=== PATIENT | female | born 1940 | race Caucasian/White ===

== ENCOUNTER 2018-03-02 09:38 | Inpatient (IN) | payer MEDICARE, OTHER ==
[~2018-03-02] VITALS: Ht 160 cm; Wt 58.4 kg
--- NOTE | ~2018-03-02 | EC ---
PATIENT:JAN BONNER DATE OF SERVICE: 03/03/18 SEX: F MEDICAL RECORD: [id number] DATE OF : 36 LOCATION:D.M2 D.213 AGE OF PATIENT: 78 ADMISSION DATE: 03/03/18 REFERRING PHYSICIAN: INTERPRETING PHYSICIAN: SUNITA HUIZAR MD ECHOCARDIOGRAM REPORT ECHO CHARGES 4 ECHO COMPLETE Date: 03/03 CLINICAL DIAGNOSIS: CHF ECHOCARDIOGRAPHIC MEASUREMENTS (adult normal given) AC root (d.<3.7cm) 3.5 cm LV Septum d (<1.2 cm> 1.2 cm Valve Excursion 2.0 cm LV Septum (systole) 1.6 cm Left Atria (s.<4.0cm> 3.1 cm LVPW d(<1.2cm) 1.4 cm RV (d.<2.3cm) 2.3 cm LVPW (sytole) 1.6 cm LV diastole(<5.6CM) 3.7 cm MV E-F(>70mm/sec) cm LV systole 2.5 cm LVOT Diameter 1.5 cm MV exc.(>10mm) 1.4 cm Est.ejection fraction (50-75%) % DOPPLER: LVIT cm/sec A 88.0 cm/sec E 70.0 cm/sec LA cm/sec RVSP 36 mmHg LVOT 101 cm/sec AOP1/2T m/s Asc. Ao 134 cm/sec RVOT 64 cm/sec RA cm/sec PA 92 cm/sec AV Gradient Peak 7.14 mmHg AV Mean 3.90 mmHg AV Area 1.6 cm MV Gradient Peak 2.87 mmHg MV Mean 1.13 mmHg MV Area cm COMMENTS: Anthropological Linguist: 2 STEPHANY ORTA Plugman: 4 Dr. Huizar TAPE# PACS Pericardial Effusion N DATE OF SERVICE: PROCEDURE: Transthoracic echocardiogram. FINDINGS: 1. Left ventricle shows evidence of left ventricular hypertrophy with diastolic dysfunction. Ejection fraction of 60% to 65%. 2. Left atrium is normal overall and grossly, although not well visualized. 3. Mitral valve is not well visualized, but grossly normal. 4. The tricuspid valve has mild tricuspid regurgitation. RVSP of 30-35 mmHg. ECHOCARDIOGRAM REPORT [id number] JAN BONNER 5. The right ventricle is normal size, shape and function. 6. The right atrium is normal. 7. The pulmonic valve has mild pulmonic insufficiency. CONCLUSION: The patient has evidence of mild hypertensive heart disease, but overall normal structure and function for patient's stated age. No evidence of regional wall motion abnormalities. TRANSINT:[id number] Voice Confirmation ID: [id number] DOCUMENT ID: [id number] SUNITA HUIZAR MD at 0927 CC: [id number] DICTATION DATE: 03/04/18 1038 GOLF CLUB MAKER: 03/04/18 1101 ADM IN [place] [id number] [place] [address]
[2018-03-02] MEDS ORDERED: PRAVACHOL20 MG PO (09:59)
[2018-03-02] MEDS ORDERED: ZESTRIL40 MG PO (10:00)
[2018-03-02] MEDS ORDERED: FLUTICASONE PRO16 GM NASAL (10:00)
[2018-03-02] MEDS ORDERED: CALCIUM 500 + D1 TAB PO (10:01)
[2018-03-02] MEDS ORDERED: MAGNESIUM OXID250 MG PO (10:01)
[2018-03-02] MEDS ORDERED: BAYER CHEWABLE81 MG PO (10:01)
[2018-03-02] MEDS ORDERED: NORVASC5 MG PO (10:01)
[2018-03-02 10:26] LABS: BASOPHILS 0.1 % (0-2); EOSINOPHILS 0.3 % (0-7); HEMATOCRIT 35.8 % (36.0-48.0); HEMOGLOBIN 11.6 g/dL (12-16); IMMATURE GRANULOCYTES 0.3 % (0-5); MCH 28.7 pg (26.0-34.0); MCHC 32.4 g/dL (31.0-37.0); MCV 88.6 fL (80.0-100.0); MEAN PLATELET VOLUME 9.8 fL (7.4-10.4); MONOCYTES 11.8 % (2-11); NEUTROPHILS 77.5 % (40-80); PLATELET COUNT 283 10x3/uL (130-400); RBC 4.04 10x6/uL (4.00-5.40); RDW 14.3 % (11.5-14.5); WBC 15.9 10x3/uL (4.8-10.8)
[2018-03-02 10:42] LABS: INR 1.19 (0.85-1.17); PROTIME 14.7 SECONDS (11.6-15.0)
[2018-03-02 10:43] LABS: APTT 32.7 SECONDS (22.8-39.4)
[2018-03-02 10:48] LABS: ALKALINE PHOSPHATASE 145 U/L (46-116); ALT (SGPT) 24 U/L (10-68); CALC OSMOLALITY 278 mosm/kg (275-300); CALCIUM 9.6 mg/dL (8.5-10.1); CHLORIDE - SERUM 100 mmol/L (98-107); GLUCOSE 115 mg/dL (74-106); POTASSIUM - SERUM 4.1 mmol/L (3.5-5.1); PROTEIN - SERUM 8.9 g/dL (6.4-8.2); SODIUM 137 mmol/L (136-145); UREA NITROGEN 23 mg/dL (7-18); eGFR NON AFRICAN AMERICAN 56 mL/min (90-120)
[2018-03-02 10:59] LABS: CKMB 0.2 U/L (0.0-3.6); CREATINE KINASE 98 UL (21-215); PRO BNP 173 pg/mL (0-450); TROPONIN-I < 0.017 ng/mL (0.000-0.060)
[2018-03-02 11:00] VITALS: BP 110/50
[2018-03-02 12:00] VITALS: BP 113/54
[2018-03-02 13:00] VITALS: BP 106/45
[2018-03-02 14:53] VITALS: BP 113/52
[2018-03-02 15:29] LABS: MAGNESIUM - SERUM 2.1 mg/dL (1.8-2.4); T4 THYROXIN - FREE 1.34 ng/dL (0.76-1.46); THYROID STIMULATING HORMONE 2.04 uIU/mL (0.36-3.74)
[2018-03-02] MEDS ORDERED: MULTIPLE VITAMI1 TA1 PO (16:05)
[2018-03-02 16:07] VITALS: BP 113/56; BMI 22.5
[2018-03-02 21:24] VITALS: BP 107/52
[2018-03-03 01:30] VITALS: BP 99/47
[2018-03-03 06:28] VITALS: BP 109/48
[2018-03-03 07:07] LABS: BASOPHILS 0.1 % (0-2); EOSINOPHILS 0.4 % (0-7); HEMATOCRIT 32.4 % (36.0-48.0); HEMOGLOBIN 10.5 g/dL (12-16); IMMATURE GRANULOCYTES 0.2 % (0-5); LYMPHOCYTES 10.8 % (15-50); MCH 28.5 pg (26.0-34.0); MCHC 32.4 g/dL (31.0-37.0); MEAN PLATELET VOLUME 10.3 fL (7.4-10.4); MONOCYTES 12.8 % (2-11); NEUTROPHILS 75.7 % (40-80); PLATELET COUNT 259 10x3/uL (130-400); RBC 3.68 10x6/uL (4.00-5.40); RDW 14.5 % (11.5-14.5); WBC 14.3 10x3/uL (4.8-10.8)
[2018-03-03 07:26] LABS: ANION GAP 14.6 mmol/L (8-16); CALCIUM 9.2 mg/dL (8.5-10.1); CARBON DIOXIDE 24.7 mmol/L (21.0-32.0); CREATININE - SERUM 0.9 mg/dL (0.6-1.3); POTASSIUM - SERUM 4.3 mmol/L (3.5-5.1)
[2018-03-03 08:51] VITALS: BP 109/52
[2018-03-03 09:25] LABS: APPEARANCE CLEAR (CLEAR); BILIRUBIN NEGATIVE (NEGATIVE); COLOR DK YELLOW (YELLOW); GLUCOSE NEGATIVE (NEGATIVE); KETONE NEGATIVE (NEGATIVE); NITRITE NEGATIVE (NEGATIVE); PROTEIN NEGATIVE (NEGATIVE); UROBILINOGEN NORMAL (NORMAL)
[2018-03-03 12:26] VITALS: BP 106/49
[2018-03-03 16:17] VITALS: BP 120/53
[2018-03-03 23:07] VITALS: BP 101/59
[2018-03-04 01:53] VITALS: BP 109/46
[2018-03-04 05:42] LABS: BASOPHILS 0.1 % (0-2); EOSINOPHILS 0.1 % (0-7); HEMOGLOBIN 10.9 g/dL (12-16); IMMATURE GRANULOCYTES 0.3 % (0-5); LYMPHOCYTES 9.4 % (15-50); MCH 28.3 pg (26.0-34.0); MCHC 32.1 g/dL (31.0-37.0); MCV 88.3 fL (80.0-100.0); MEAN PLATELET VOLUME 10.1 fL (7.4-10.4); MONOCYTES 8.4 % (2-11); NEUTROPHILS 81.7 % (40-80); PLATELET COUNT 259 10x3/uL (130-400); RBC 3.85 10x6/uL (4.00-5.40); RDW 14.2 % (11.5-14.5); WBC 13.6 10x3/uL (4.8-10.8)
[2018-03-04 05:54] LABS: ANION GAP 12.2 mmol/L (8-16); CALCIUM 9.6 mg/dL (8.5-10.1); CARBON DIOXIDE 26.1 mmol/L (21.0-32.0); POTASSIUM - SERUM 4.3 mmol/L (3.5-5.1)
[2018-03-04 06:25] VITALS: BP 105/50
[2018-03-04 09:01] VITALS: BP 96/42
[2018-03-04 13:24] LABS: % SATURATION 11 % (15-55); IRON 20 ug/dl (35-150); TOTAL IRON BIND CAPACITY 173 ug/dl (260-445); UNSAT IRON BIND CAPACITY 153 ug/dl (150-375)
[2018-03-04 13:32] VITALS: BP 107/42
[2018-03-04 18:02] LABS: ERYTHROCYTE SEDIMENTATION RATE 70 mm/hr (0-30)
[2018-03-04 20:30] VITALS: BP 102/54
[2018-03-05 04:30] VITALS: BP 112/54
[2018-03-05 05:58] LABS: BASOPHILS 0.2 % (0-2); EOSINOPHILS 1.1 % (0-7); HEMATOCRIT 32.8 % (36.0-48.0); HEMOGLOBIN 10.5 g/dL (12-16); IMMATURE GRANULOCYTES 0.4 % (0-5); LYMPHOCYTES 14.8 % (15-50); MCH 28.2 pg (26.0-34.0); MCV 87.9 fL (80.0-100.0); MEAN PLATELET VOLUME 10.4 fL (7.4-10.4); MONOCYTES 10.6 % (2-11); NEUTROPHILS 72.9 % (40-80); PLATELET COUNT 268 10x3/uL (130-400); RBC 3.73 10x6/uL (4.00-5.40); RDW 14.1 % (11.5-14.5); WBC 12.1 10x3/uL (4.8-10.8)
[2018-03-05 06:11] LABS: ANION GAP 9.1 mmol/L (8-16); CARBON DIOXIDE 27.1 mmol/L (21.0-32.0); POTASSIUM - SERUM 4.2 mmol/L (3.5-5.1)
[2018-03-05 08:40] VITALS: BP 105/45
[2018-03-05 12:28] VITALS: BP 117/50
[2018-03-05 13:41] VITALS: Ht 160 cm; Wt 58.4 kg
[2018-03-05 20:00] VITALS: BP 102/48
[2018-03-05 23:56] VITALS: BP 107/54
[2018-03-06 04:00] VITALS: BP 114/55
[2018-03-06 05:24] LABS: BASOPHILS 0.2 % (0-2); EOSINOPHILS 1.7 % (0-7); HEMATOCRIT 31.3 % (36.0-48.0); IMMATURE GRANULOCYTES 0.6 % (0-5); LYMPHOCYTES 15.4 % (15-50); MCH 27.9 pg (26.0-34.0); MCHC 31.9 g/dL (31.0-37.0); MCV 87.4 fL (80.0-100.0); MEAN PLATELET VOLUME 10.1 fL (7.4-10.4); MONOCYTES 10.6 % (2-11); NEUTROPHILS 71.5 % (40-80); PLATELET COUNT 276 10x3/uL (130-400); RBC 3.58 10x6/uL (4.00-5.40); RDW 14.1 % (11.5-14.5); WBC 10.8 10x3/uL (4.8-10.8)
[2018-03-06 05:35] LABS: ANION GAP 9.9 mmol/L (8-16); CALCIUM 8.9 mg/dL (8.5-10.1); CARBON DIOXIDE 26.4 mmol/L (21.0-32.0); POTASSIUM - SERUM 4.3 mmol/L (3.5-5.1)
[2018-03-06 08:00] VITALS: BP 119/50
[2018-03-06 08:20] LABS: FOLATE (FOLIC ACID) - SERUM >20.0 ng/mL (>3.0)
[2018-03-06 10:47] VITALS: BP 110/47
[2018-03-06 15:23] VITALS: BP 109/48
[2018-03-06 20:00] VITALS: BP 120/54
[2018-03-06 23:55] VITALS: BP 110/56
[2018-03-07 04:00] VITALS: BP 109/64
[2018-03-07 06:31] LABS: BASOPHILS 0.3 % (0-2); EOSINOPHILS 2.2 % (0-7); HEMATOCRIT 32.1 % (36.0-48.0); HEMOGLOBIN 10.3 g/dL (12-16); IMMATURE GRANULOCYTES 0.5 % (0-5); LYMPHOCYTES 11.5 % (15-50); MCH 28.1 pg (26.0-34.0); MCHC 32.1 g/dL (31.0-37.0); MCV 87.7 fL (80.0-100.0); MEAN PLATELET VOLUME 10.4 fL (7.4-10.4); NEUTROPHILS 73.5 % (40-80); PLATELET COUNT 274 10x3/uL (130-400); RBC 3.66 10x6/uL (4.00-5.40); RDW 14.2 % (11.5-14.5); WBC 10.7 10x3/uL (4.8-10.8)
[2018-03-07 06:47] LABS: ANION GAP 12.4 mmol/L (8-16); CALCIUM 9.1 mg/dL (8.5-10.1); CREATININE - SERUM 0.9 mg/dL (0.6-1.3); POTASSIUM - SERUM 4.4 mmol/L (3.5-5.1)
[2018-03-07 08:32] VITALS: BP 114/52
[2018-03-07 12:26] VITALS: BP 115/53
[2018-03-07] MEDS ORDERED: PROTONIX40 MG PO (15:21)
[2018-03-07] MEDS ORDERED: MIRALAX17 GM PO (15:21)
[2018-03-07] MEDS ORDERED: FLORAJEN3 CAPS460 MG PO (15:21)
[2018-03-07] MEDS ORDERED: NORVASC2.5 MG PO (15:24)
[2018-03-07] MEDS ORDERED: COMBIVENT RESPIM4 GM INH (15:24)
[2018-03-07] MEDS ORDERED: KEFLEX500 MG PO (15:24)
[2018-03-07 15:50] VITALS: BP 101/52
== END 2018-03-07 16:56 | disposition home or self-care (01) | DRG 194 ==
LOC: D.ER 09:38 → OBSVTIME 13:00 → D.M2 13:00 → D.EDHOLD 13:00 → D.M2 13:04
PROVIDERS: Emergency Medicine; Internal Medicine Nephrology
DX: J18.9 Pneumonia, unspecified organism (principal); N17.9 Acute kidney failure, unspecified; K75.9 Inflammatory liver disease, unspecified; I10 Essential (primary) hypertension; K21.9 Gastro-esophageal reflux disease without esophagitis; D50.9 Iron deficiency anemia, unspecified; S80.811A Abrasion, right lower leg, initial encounter; X58.XXXA Exposure to other specified factors, initial encounter; R00.0 Tachycardia, unspecified; I07.1 Rheumatic tricuspid insufficiency; Z86.73 Personal history of transient ischemic attack (TIA), and cerebral infarction without residual deficits

== ENCOUNTER 2018-04-20 12:35 | Inpatient (IN) | payer MEDICARE, OTHER ==
[~2018-04-20] VITALS: Ht 160 cm; Wt 56.8 kg
--- NOTE | ~2018-04-20 | PN ---
PATIENT:JAN BONNER MEDICAL RECORD: [id number] LOCATION:D.M2 D.212 ADMISSION DATE: 04/20/18 PROGRESS NOTE DATE OF SERVICE: 04/30/2018 This is an 78-year-old female who was admitted for leukocytosis, possible pneumonia. The patient had been coughing up phlegm, leukocytosis had reached up to 33,000 but has come down, is not going up again. The patient feels very weak. There is no fever or chills. Had been on antibiotics as well as bronchodilators. There is no nausea or vomiting. PHYSICAL EXAMINATION: GENERAL: Physical exam reveals an elderly female patient in no acute distress, appears weak on walking. VITAL SIGNS: Temperature 97.2, heart rate of 84, respiratory rate of 18, blood pressure 111/58. SHEENT: Unremarkable. There is no nasal congestion, no obstruction. NECK: Supple. There is no adenopathy. Trachea is midline. There is no thyromegaly. CHEST: Exam showed mild crackles. Some coughing. There is no chest wall tenderness. HEART: Exam shows no jugular venous distention, no murmur or gallops. ABDOMEN: Benign. There is no tenderness. There is no distention and there are no masses. EXTREMITIES: No clubbing, cyanosis or edema. LABORATORY DATA: Showed white count is 17.9, hemoglobin 8.5, platelet count is 206,000. Chemistry shows creatinine of 0.7, potassium 3.9. IGA is elevated. Serology H. pylori negative, hepatitis B negative, hepatitis B surface antigen is negative. Hepatitis C is elevated. Chest x-ray showed interval progression of her bibasilar atelectasis. ASSESSMENT: 1. Leukocytosis, appears to be improving, but now is still elevated. 2. Bilateral atelectasis, possible pneumonitis. The patient is expected to be seen by an infectious disease surgical product sales consultant. PLAN: 1. Continue antibiotics, bronchodilators as well as chest percussion. 2. Follow CBC for white count levels. 3. Deep venous thrombosis prophylaxis. TRANSINT:[id number] Voice Confirmation ID: [id number] DOCUMENT ID: [id number] PROGRESS NOTE [id number] JAN BONNER TAMIE HARMON at 5544 CC: [id number] DICTATION DATE: 04/30/18 185 INDIAN BLANKET WEAVER: 04/30/18 2330 ADM IN [facility] [address] [facility]
--- NOTE | ~2018-04-20 | PN ---
PATIENT:JAN BONNER MEDICAL RECORD: [id number] LOCATION:[address] ADMISSION DATE: 04/20/18 PROGRESS NOTE DATE OF SERVICE: 05/01/2018 HISTORY OF PRESENT ILLNESS: This is an 78-year-old female who was admitted through the Emergency Room with fever and chills as well as leukocytosis, has had cough nonproductively. She was seen by infectious disease consult today. The patient states that she has lost about 30 pounds recently. She does also travel to [facility] more than 3 times as well as to [place]. The patient denies any fever or chills. PHYSICAL EXAMINATION: GENERAL: Physical exam reveals an elderly female who appears to be weak. VITAL SIGNS: Temperature 98.2, heart rate of 68, respiratory rate of 18, blood pressure 111/55, and saturation 95%. SHEENT: Unremarkable. NECK: Supple. PULMONARY: Clear with occasional crackles at coughing. HEART: Exam shows no jugular venous distention, no murmur or gallops. ABDOMEN: Benign. No tenderness. EXTREMITIES: No clubbing, cyanosis or edema. LABORATORY DATA: Lab exam shows a white count of 19, hemoglobin 8.7, and platelet count is 297. Chemistry is remarkable for sodium 132 and creatinine is 0.7. ASSESSMENT: 1. Leukocytosis, most likely due to atypical infection, possibly to Mycobacterium suggestive of fungal disease. 2. Weight loss secondary to infection. PLAN: 1. Thanks to ID for involvement. Continue antibiotics. 2. Continue bronchodilators. 3. DVT prophylaxis. TRANSINT:[id number] Voice Confirmation ID: [id number] DOCUMENT ID: [id number] TAMIE HARMON at 1350 CC: [id number] DICTATION DATE: 05/01/181816 TEACHER OF THE HEARING IMPAIRED: 05/01/18 6604 ADM IN [facility] [address] [place] [address]
--- NOTE | ~2018-04-20 | PN ---
PATIENT:JAN BONNER MEDICAL RECORD: [id number] LOCATION:D.M2 D.212 ADMISSION DATE: 04/20/18 PROGRESS NOTE DATE OF SERVICE: 05/04/2018 SUBJECTIVE: This is an 78-year-old female, who was admitted with acute bronchitis with cough and sputum production. The patient also was noted to have leukocytosis. She was treated with antibiotics, bronchodilators with significant decrease in leukocytosis. The patient was seen by infectious disease provider contracting consultant and the patient was switched to Levaquin. The patient began to feel better. She was coughing up. Leukocytosis decreased. The patient has been doing well with no fever or chills. PHYSICAL EXAMINATION: GENERAL: Reveals a well-developed, well-nourished female, who is in no acute distress. VITAL SIGNS: Temperature 97.5, heart rate of 105, respiratory rate of 18, blood pressure 95/59. SHEENT: Unremarkable. NECK: Supple. No adenopathy. Trachea is midline. There is no tenderness. CHEST: Clear. Good airflow bilaterally. There are no crackles. There are no wheezes. CARDIAC: Shows no jugular venous distention, murmurs, or gallops. ABDOMEN: Benign. EXTREMITIES: Shows no clubbing, cyanosis, or edema. LABORATORY DATA: Lab exam showed white count of 18.3, hemoglobin of 7.9. Her chemistry is remarkable for potassium of 3.3, sodium 137, creatinine is 0.6. Abdomen and pelvic CT: Heterogeneous mass in the right lobe of liver is suspicious for hepatic malignancy. A mass that is arising from willian hepatis or the pancreas is also suspicious for malignancy. Enlarged lymph nodes within the inferior vena cava and duodenum suspicious for metastatic disease. Large amount of fecal material in the colon. Sigmoid diverticulosis. Bibasilar atelectasis is noted. ASSESSMENT: 1. 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 Has bibasilar atelectasis. Plan to continue antibiotic and bronchodilator therapy. 2. Leukocytosis secondary to malignancy. 3. Bibasilar atelectasis with pneumonia. PLAN: We will sign off the patient now. Further evaluation and treatment per PCP. If pulmonary is needed, please call the pulmonary team. TRANSINT:[id number] Voice Confirmation ID: [id number] DOCUMENT ID: [id number] PROGRESS NOTE [id number] PRESLAR,TAMIE CASH at 1648 CC: [id number] DICTATION DATE: 05/04/18 1509 LEVEL VIAL GRINDER: 05/04/18 1555 ADM IN [facility] [address] [place] [id number]
--- NOTE | ~2018-04-20 | PN ---
PATIENT:JAN BONNER MEDICAL RECORD: [id number] LOCATION:D. D.212 ADMISSION DATE: 04/20/18 PROGRESS NOTE DATE OF SERVICE: 05/02/2018 SUBJECTIVE: This is an 78-year-old female, who has had recent travels to [facility]. She has noted increasing shortness of breath and sputum production initially was yellowish-green and now is clearing to almost white. The patient has had severe leukocytosis. She has been waxing and waning. The patient was seen by infectious disease and was changed to Levaquin. Her white count decreased overnight. The patient has decreased coughing. There is no fever or chills. PHYSICAL EXAMINATION: GENERAL: Reveals an elderly female who is in no acute distress. VITAL SIGNS: Temperature 97.5, heart rate 101, respiratory rate 16, blood pressure 132/59, saturation 96%. SHEENT: Unremarkable. Normal nares. Oral cavity is normal, moistened. NECK: Supple. There is no adenopathy. Trachea is midline. There is no thyromegaly. CHEST: Showed good flow. There are mild bilateral crackles on coughing. No chest wall tenderness. HEART: Shows no jugular venous distention. No murmur or gallops. ABDOMEN: Shows no tenderness. No distention. No masses. EXTREMITIES: There is no clubbing, cyanosis or edema. LABORATORY DATA: White count of 17.5, hemoglobin 8.7 and platelet count is 290. Chemistry is remarkable for creatinine of 0.7. Sodium is 134, potassium 3.6. Immunology showed elevated IgE. Serology showed hepatitis C antibody. ASSESSMENT: 1. Severe leukocytosis improved on Levaquin. We will check it again, last test has been going up and down each day. 2. Acute bronchitis, opacity improving. 3. Positive hepatitis C antibody. 4. Possible aspiration. PLAN: 1. Continue bronchodilators. 2. Continue antibiotics. 3. Deep venous thrombosis prophylaxis. TRANSINT:[id number] Voice Confirmation ID: [id number] DOCUMENT ID: [id number] PROGRESS NOTE [id number] JAN BONNER TAMIE HARMON at 1241 CC: [id number] DICTATION DATE: 05/02/181732 MATHEMATICAL STATISTICIAN: 05/02/182037 ADM IN [address] [place] [address]
--- NOTE | ~2018-04-20 | CN ---
PATIENT NAME:JAN BONNER MEDICAL RECORD: [id number] : 36 LOCATION:D. D.2125 ADMIT DATE: 04/20/18 ACCOUNT: [id number] CONSULTING PHYSICIAN: TAMIE HARMON REFERRING PHYSICIAN: MARLIN HICKS MD DATE OF CONSULTATION: 04/20/2018 Pulmonary Consultation HISTORY OF PRESENT ILLNESS: This is an 78-year-old female who apparently has had postnasal drainage problem since July of last year. The patient has had recurrent episodes with coughing and shortness of breath. The patient presented to urgent care center and was noted to have leukocytosis and direct admission was placed. The patient denies fever, chills. The patient does not smoke, "has second-hand smoking from my first ." The patient denies any frequency or dysuria. PAST MEDICAL HISTORY: Remarkable for stroke, weakness, hepatitis, and hypertension. PAST SURGICAL HISTORY: Ovarian cyst removal. ALLERGIES: No known allergies. MEDICATIONS: Include Acidophilus Lactis 100 mg daily, polyethylene glycol 17 grams b.i.d., amlodipine 2.5 mg daily, Combivent 1 puff q.i.d. FAMILY HISTORY: Remarkable for cardiovascular disease, cancer, and hypertension. REVIEW OF SYSTEMS: CONSTITUTIONAL: The patient denies any fever or chills. SHEENT: There is no headache. She has had profuse nasal drainage, postnasal drainage. There is no pain in the cheeks. CARDIOPULMONARY. The patient denies any orthopnea or PND. GASTROINTESTINAL: There is no nausea or vomiting, abdominal pain. GENITOURINARY: There is no frequency, dysuria. PHYSICAL EXAMINATION: GENERAL: My review showed an elderly female who is in no acute distress. VITAL SIGNS: Temperature 97.1, heart rate 102, respiratory rate of 18, blood pressure 126/61. SHEENT: Unremarkable for nasal redness and no obstruction. NECK: Supple. There is no adenopathy. There is no stridor. CHEST: Shows mild crackles on coughing bilaterally. HEART: Shows no jugular venous distention. No murmur or gallops. ABDOMEN: Benign, without any tenderness. EXTREMITIES: No clubbing, cyanosis, or edema. LABORATORY DATA: Shows white count of 19.9, hemoglobin 10.1, platelet count is 266. Chemistries remarkable for potassium 3.7, creatinine is 1. Chest x-ray shows no acute cardiopulmonary disease. IMPRESSION: 1. Acute asthmatic bronchitis, probably exacerbated by postnasal drip. CONSULT REPORT [id number] JAN BONNER 2. Chronic obstructive pulmonary disease from secondhand smoking. 3. Leukocytosis, probably secondary to a severe bronchitis or rhinitis. 4. Rhinitis rule out sinusitis. PLAN: 1. Saline nasal spray. 2. Flonase. 3. DuoNeb bronchodilators. 4. Empiric antibiotics, pending cultures. 5. Continue Rocephin. 6. DVT prophylaxis with Lovenox. 7. If the patient does not improve, the patient may need systemic steroid therapy. 8. Control hypertension. PLAN: 1. Rocephin 1 gram daily. 2. Nasal spray with Flonase as well as saline. 3. DuoNeb q.i.d. 4. Lovenox subQ daily. Thank you Dr. Hicks for this consultation. TRANSINT:[id number] Voice Confirmation ID: [id number] DOCUMENT ID: [id number] TAMIE HARMON at 1716 CC: [id number] DICTATION DATE: 04/20/18 1830 ADVERTISING ASSISTANT: 04/20/18 2241 ADM IN [place] [address] [place] [address]
--- NOTE | ~2018-04-20 | PN ---
PATIENT:JAN BONNER MEDICAL RECORD: [id number] LOCATION:D.[facility].212 ADMISSION DATE: 04/20/18 PROGRESS NOTE DATE OF SERVICE: 05/03/2018 SUBJECTIVE: This is an 78-year-old female who was admitted to the Emergency Room for cough and shortness of breath, possible pneumonia with leukocytosis. The patient had enterococcus in the urine, treated for urinary tract infection, but continued to have leukocytosis. Infectious disease was consulted and felt that the patient had other infection other than the urinary tract infection. The patient was switched to Levaquin. The patient has been feeling better overnight. She has been coughing up sputum. There is no fever or chills. PHYSICAL EXAMINATION: GENERAL: Reveals an elderly female who is in no acute distress. VITAL SIGNS: Temperature 97.5, heart rate of 90, respiratory rate of 16, blood pressure 116/56, saturation 96%. SHEENT: Unremarkable. NECK: Supple. There is no adenopathy. LUNGS: Clear with occasional crackles on coughing. No chest wall tenderness. CARDIAC: Shows no jugular venous distention. There is no murmur or gallops. ABDOMEN: Benign. There is no tenderness. There is no distention. There is no mass. EXTREMITIES: Shows no clubbing, cyanosis or edema. LABORATORY DATA: White count 17.4, hemoglobin 8.2 with a platelet count of 243,000. Chemistry is unremarkable except for sodium 134, creatinine is 0.6. ASSESSMENT: 1. Acute asthmatic bronchitis with retained mucus. 2. Hypoalbuminemia. 3. Urinary tract infection. Improving on Levaquin. PLAN: 1. Continue antibiotics. 2. Continue bronchodilators and mucolytic 3. Continue flutter valve. TRANSINT:[id number] Voice Confirmation ID: [id number] DOCUMENT ID: [id number] TAMIE HARMON at 0802 CC: [id number] DICTATION DATE: 05/03/181712 UPKEEP WORKER: 05/04/18 0212 ADM IN [place] [id number] [place] [address]
--- NOTE | ~2018-04-20 | PN ---
PATIENT:JAN BONNER MEDICAL RECORD: [id number] [facility] AD[facility] DATE: 04/20/18 PROGRESS NOTE DATE OF SERVICE: 04/22/2018 HISTORY: An 78-year-old female who was admitted for shortness of breath, urinary tract infection with leukocytosis. The patient also had postnasal drainage. She was treated with antibiotics as well as bronchodilators. The patient's white count was 19,000 and the following day went to 33,000. The patient is breathing better today. White count is down to 18,000. She denies any shortness of breath. There is no fever or chills. PHYSICAL EXAMINATION: GENERAL: Reveals an elderly female who is in no acute distress. VITAL SIGNS: Temperature afebrile, heart rate of 110, respiratory rate of 20, blood pressure 125/55. SHEENT: Unremarkable. Mild redness in the nares. No obstruction. NECK: Supple. Trachea is midline. There is no stridor. LUNGS: Shows mild crackles on coughing. No wheezes. HEART: Shows no jugular venous distention. No murmur or gallops. ABDOMEN: Benign, without any tenderness or masses. EXTREMITIES: Shows no clubbing, cyanosis, or edema. LABORATORY AND DIAGNOSTIC DATA: Show white count of 18.6, hemoglobin 10, platelet count is 282,000. Chemistry is unremarkable. Creatinine is 0.7, potassium 3.8. Chest x-ray shows no acute pulmonary disease. Sinuses showed mild opacification of bilateral mastoid air cells. ASSESSMENT: 1. No signs of bronchitis. 2. Bilateral mastoiditis. 3. Rhinitis. 4. Leukocytosis, improving. PLAN: 1. Continue antibiotics. 2. Bronchodilators. TRANSINT:[id number] Voice Confirmation ID: [id number] DOCUMENT ID: [id number] TAMIE HARMON at 1553 CC: [id number] DICTATION DATE: 04/22/181815 CLIENT CARE MANAGER: 04/23/18 0627 ADM IN [place] [id number] [place] [id number]
[~2018-04-20 12:35] MED LIST: BAYER CHEWABLE81 MG PO; CALCIUM 500 + D1 TAB PO; COMBIVENT RESPIM4 GM INH; FLORAJEN3 CAPS460 MG PO; FLUTICASONE PRO16 GM NASAL; KEFLEX500 MG PO; MAGNESIUM OXID250 MG PO; MIRALAX17 GM PO; MULTIPLE VITAMI1 TA1 PO; NORVASC2.5 MG PO; NORVASC5 MG PO; PRAVACHOL20 MG PO; PROTONIX40 MG PO; ZESTRIL40 MG PO
[2018-04-20 13:50] VITALS: BP 126/61; BMI 21.4
[2018-04-20 14:45] LABS: BASOPHILS 0.1 % (0-2); EOSINOPHILS 0 % (0-7); HEMATOCRIT 31.9 % (36.0-48.0); HEMOGLOBIN 10.1 g/dL (12-16); IMMATURE GRANULOCYTES 0.5 % (0-5); LYMPHOCYTES 5.5 % (15-50); MCH 26.9 pg (26.0-34.0); MCHC 31.7 g/dL (31.0-37.0); MCV 84.8 fL (80.0-100.0); MEAN PLATELET VOLUME 9.3 fL (7.4-10.4); MONOCYTES 6.7 % (2-11); NEUTROPHILS 87.2 % (40-80); PLATELET COUNT 266 10x3/uL (130-400); RBC 3.76 10x6/uL (4.00-5.40); RDW 15.9 % (11.5-14.5); WBC 19.9 10x3/uL (4.8-10.8)
[2018-04-20 15:03] LABS: ANION GAP 13.2 mmol/L (8-16); CARBON DIOXIDE 26.5 mmol/L (21.0-32.0); POTASSIUM - SERUM 3.7 mmol/L (3.5-5.1)
[2018-04-20 21:20] VITALS: BP 125/56
[2018-04-21 02:35] VITALS: BP 124/64
[2018-04-21 06:16] LABS: HEMATOCRIT 33.7 % (36.0-48.0); HEMOGLOBIN 10.9 g/dL (12-16); MCH 27.5 pg (26.0-34.0); MCHC 32.3 g/dL (31.0-37.0); MCV 85.1 fL (80.0-100.0); PLATELET COUNT 429 10x3/uL (130-400); RBC 3.96 10x6/uL (4.00-5.40); RDW 16.2 % (11.5-14.5)
[2018-04-21 06:37] VITALS: BP 123/61
[2018-04-21 06:48] LABS: CALCIUM 9.2 mg/dL (8.5-10.1); CARBON DIOXIDE 23.6 mmol/L (21.0-32.0); POTASSIUM - SERUM 3.6 mmol/L (3.5-5.1)
[2018-04-21 07:33] LABS: LYMPHOCYTES 10 % (15-50); MONOCYTES 6 % (2-11); NEUTROPHILS 80 % (40-80); PLATELET ESTIMATE NORMAL
[2018-04-21 08:00] VITALS: BP 108/52
[2018-04-21 10:51] VITALS: BP 112/55
[2018-04-21 16:11] VITALS: BP 112/58
[2018-04-21 22:32] VITALS: BP 125/55
[2018-04-22 05:41] LABS: BASOPHILS 0.1 % (0-2); EOSINOPHILS 0.4 % (0-7); HEMATOCRIT 31.9 % (36.0-48.0); IMMATURE GRANULOCYTES 0.4 % (0-5); LYMPHOCYTES 5.7 % (15-50); MCH 26.9 pg (26.0-34.0); MCHC 31.3 g/dL (31.0-37.0); MCV 85.8 fL (80.0-100.0); MONOCYTES 6.4 % (2-11); RBC 3.72 10x6/uL (4.00-5.40); RDW 16.1 % (11.5-14.5)
[2018-04-22 05:48] LABS: PLATELET COUNT 282 10x3/uL (130-400); WBC 18.6 10x3/uL (4.8-10.8)
[2018-04-22 06:27] LABS: ALBUMIN 1.9 g/dL (3.4-5.0); ALKALINE PHOSPHATASE 158 U/L (46-116); ALT (SGPT) 41 U/L (10-68); BILIRUBIN - TOTAL 0.42 mg/dL (0.2-1.3); CALC OSMOLALITY 282 mosm/kg (275-300); CALCIUM 8.7 mg/dL (8.5-10.1); CHLORIDE - SERUM 104 mmol/L (98-107); GLUCOSE 117 mg/dL (74-106); POTASSIUM - SERUM 3.8 mmol/L (3.5-5.1); PROTEIN - SERUM 7.1 g/dL (6.4-8.2); SODIUM 139 mmol/L (136-145); UREA NITROGEN 23 mg/dL (7-18); eGFR NON AFRICAN AMERICAN 85 mL/min (90-120)
[2018-04-22 06:28] LABS: CREATININE - SERUM 0.7 mg/dL (0.6-1.3)
[2018-04-22 08:00] VITALS: BP 135/68
[2018-04-23 00:11] VITALS: BP 117/54
[2018-04-23 04:00] VITALS: BP 115/59
[2018-04-23 05:43] LABS: BASOPHILS 0.1 % (0-2); EOSINOPHILS 0.4 % (0-7); HEMATOCRIT 28.7 % (36.0-48.0); IMMATURE GRANULOCYTES 0.4 % (0-5); LYMPHOCYTES 8.4 % (15-50); MCH 26.6 pg (26.0-34.0); MCHC 31.4 g/dL (31.0-37.0); MCV 84.9 fL (80.0-100.0); MONOCYTES 7.3 % (2-11); NEUTROPHILS 83.4 % (40-80); PLATELET COUNT 287 10x3/uL (130-400); RBC 3.38 10x6/uL (4.00-5.40); RDW 16.4 % (11.5-14.5); WBC 20.3 10x3/uL (4.8-10.8)
[2018-04-23 06:09] LABS: ALBUMIN 1.8 g/dL (3.4-5.0); ANION GAP 11.1 mmol/L (8-16); BILIRUBIN - TOTAL 0.42 mg/dL (0.2-1.3); CALCIUM 8.3 mg/dL (8.5-10.1); CREATININE - SERUM 0.8 mg/dL (0.6-1.3); POTASSIUM - SERUM 4.1 mmol/L (3.5-5.1); PROTEIN - SERUM 6.5 g/dL (6.4-8.2)
[2018-04-23 23:37] VITALS: BP 120/59
[2018-04-24 05:00] VITALS: BP 126/60
[2018-04-24 06:20] LABS: BASOPHILS 0.1 % (0-2); EOSINOPHILS 0.3 % (0-7); HEMATOCRIT 29.6 % (36.0-48.0); HEMOGLOBIN 9.4 g/dL (12-16); IMMATURE GRANULOCYTES 0.6 % (0-5); LYMPHOCYTES 7.3 % (15-50); MCH 26.8 pg (26.0-34.0); MCHC 31.8 g/dL (31.0-37.0); MCV 84.3 fL (80.0-100.0); MONOCYTES 7.5 % (2-11); NEUTROPHILS 84.2 % (40-80); PLATELET COUNT 328 10x3/uL (130-400); RBC 3.51 10x6/uL (4.00-5.40); RDW 16.2 % (11.5-14.5); WBC 23.4 10x3/uL (4.8-10.8)
[2018-04-24 06:37] LABS: CALC OSMOLALITY 271 mosm/kg (275-300); CALCIUM 8.7 mg/dL (8.5-10.1); CARBON DIOXIDE 21.6 mmol/L (21.0-32.0); CHLORIDE - SERUM 103 mmol/L (98-107); CREATININE - SERUM 0.7 mg/dL (0.6-1.3); GLUCOSE 103 mg/dL (74-106); POTASSIUM - SERUM 3.9 mmol/L (3.5-5.1); SODIUM 136 mmol/L (136-145); eGFR NON AFRICAN AMERICAN 85 mL/min (90-120)
[2018-04-24 06:39] LABS: UREA NITROGEN 13 mg/dL (7-18)
[2018-04-24 07:39] VITALS: BP 105/52
[2018-04-24 11:51] VITALS: BP 108/55
[2018-04-24 15:15] VITALS: BP 114/60
[2018-04-24 15:30] LABS: APPEARANCE CLEAR (CLEAR); BILIRUBIN NEGATIVE (NEGATIVE); COLOR YELLOW (YELLOW); GLUCOSE NEGATIVE (NEGATIVE); KETONE NEGATIVE (NEGATIVE); NITRITE NEGATIVE (NEGATIVE); PROTEIN NEGATIVE (NEGATIVE); SPECIFIC GRAVITY 1.015 (1.005-1.020); UROBILINOGEN NORMAL (NORMAL)
[2018-04-24 15:32] VITALS: Ht 160 cm; Wt 56.8 kg
[2018-04-24 22:16] VITALS: BP 120/47
[2018-04-25 05:19] LABS: BASOPHILS 0.1 % (0-2); HEMATOCRIT 30.6 % (36.0-48.0); HEMOGLOBIN 9.7 g/dL (12-16); IMMATURE GRANULOCYTES 0.6 % (0-5); LYMPHOCYTES 7.3 % (15-50); MCH 27.2 pg (26.0-34.0); MCHC 31.7 g/dL (31.0-37.0); MCV 85.7 fL (80.0-100.0); MEAN PLATELET VOLUME 9.8 fL (7.4-10.4); MONOCYTES 8.1 % (2-11); NEUTROPHILS 82.9 % (40-80); PLATELET COUNT 295 10x3/uL (130-400); RBC 3.57 10x6/uL (4.00-5.40); RDW 16.5 % (11.5-14.5); WBC 17.6 10x3/uL (4.8-10.8)
[2018-04-25 05:31] LABS: CALC OSMOLALITY 276 mosm/kg (275-300); CALCIUM 8.6 mg/dL (8.5-10.1); CHLORIDE - SERUM 104 mmol/L (98-107); CREATININE - SERUM 0.7 mg/dL (0.6-1.3); GLUCOSE 102 mg/dL (74-106); INR 1.24 (0.85-1.17); POTASSIUM - SERUM 3.7 mmol/L (3.5-5.1); PROTIME 15.2 SECONDS (11.6-15.0); SODIUM 138 mmol/L (136-145); UREA NITROGEN 15 mg/dL (7-18); eGFR NON AFRICAN AMERICAN 85 mL/min (90-120)
[2018-04-25 05:32] LABS: CARBON DIOXIDE 27.7 mmol/L (21.0-32.0)
[2018-04-25 06:19] LABS: HELICOBACTER PYLORI IGG NEGATIVE (NEGATIVE)
[2018-04-25 06:42] VITALS: BP 129/57
[2018-04-25 08:24] LABS: HEPATITIS C ANTIBODY 7.8 (0.0-0.9)
[2018-04-25 10:20] LABS: IMMUNOGLOBULIN A 557 mg/dL (64-422); IMMUNOGLOBULIN G 1391 mg/dL (700-1600)
[2018-04-25 13:57] VITALS: BP 101/51
[2018-04-25 20:42] VITALS: BP 103/61
[2018-04-26 00:59] VITALS: BP 116/56
[2018-04-26 05:14] VITALS: BP 119/59
[2018-04-26 05:16] LABS: BASOPHILS 0.1 % (0-2); EOSINOPHILS 0.9 % (0-7); HEMATOCRIT 26.6 % (36.0-48.0); HEMOGLOBIN 8.4 g/dL (12-16); IMMATURE GRANULOCYTES 0.6 % (0-5); MCH 26.6 pg (26.0-34.0); MCHC 31.6 g/dL (31.0-37.0); MCV 84.2 fL (80.0-100.0); MONOCYTES 9.9 % (2-11); NEUTROPHILS 81.5 % (40-80); PLATELET COUNT 302 10x3/uL (130-400); RBC 3.16 10x6/uL (4.00-5.40); RDW 16.6 % (11.5-14.5); WBC 17.2 10x3/uL (4.8-10.8)
[2018-04-26 05:43] LABS: CALC OSMOLALITY 271 mosm/kg (275-300); CHLORIDE - SERUM 104 mmol/L (98-107); CREATININE - SERUM 0.7 mg/dL (0.6-1.3); GLUCOSE 114 mg/dL (74-106); POTASSIUM - SERUM 3.7 mmol/L (3.5-5.1); SODIUM 135 mmol/L (136-145); UREA NITROGEN 16 mg/dL (7-18); VANCOMYCIN - TROUGH 4.9 ug/mL (10.0-20.0); eGFR NON AFRICAN AMERICAN 85 mL/min (90-120)
[2018-04-26 07:30] VITALS: BP 118/59
[2018-04-26 11:40] VITALS: BP 125/61
[2018-04-26 16:21] VITALS: BP 116/55
[2018-04-27 05:34] VITALS: BP 129/63
[2018-04-27 06:07] LABS: BASOPHILS 0.1 % (0-2); EOSINOPHILS 0.9 % (0-7); HEMATOCRIT 26.7 % (36.0-48.0); HEMOGLOBIN 8.4 g/dL (12-16); IMMATURE GRANULOCYTES 0.7 % (0-5); LYMPHOCYTES 7.7 % (15-50); MCH 26.6 pg (26.0-34.0); MCHC 31.5 g/dL (31.0-37.0); MCV 84.5 fL (80.0-100.0); MEAN PLATELET VOLUME 9.8 fL (7.4-10.4); MONOCYTES 8.2 % (2-11); NEUTROPHILS 82.4 % (40-80); PLATELET COUNT 281 10x3/uL (130-400); RBC 3.16 10x6/uL (4.00-5.40); RDW 16.6 % (11.5-14.5)
[2018-04-27 06:31] LABS: CALC OSMOLALITY 264 mosm/kg (275-300); CALCIUM 8.4 mg/dL (8.5-10.1); CARBON DIOXIDE 24.1 mmol/L (21.0-32.0); CHLORIDE - SERUM 101 mmol/L (98-107); CREATININE - SERUM 0.7 mg/dL (0.6-1.3); GLUCOSE 124 mg/dL (74-106); POTASSIUM - SERUM 3.6 mmol/L (3.5-5.1); SODIUM 132 mmol/L (136-145); UREA NITROGEN 9 mg/dL (7-18); eGFR NON AFRICAN AMERICAN 85 mL/min (90-120)
[2018-04-27 08:26] VITALS: BP 120/90
[2018-04-27 11:43] VITALS: BP 123/84
[2018-04-27 12:19] LABS: IMMUNOGLOBULIN E 38 IU/mL (0-100)
[2018-04-27 15:10] VITALS: BP 125/74
[2018-04-27 20:00] VITALS: BP 111/58
[2018-04-28] VITALS: BP 104/55
[2018-04-28 04:00] VITALS: BP 143/65
[2018-04-28 07:04] LABS: BASOPHILS 0.1 % (0-2); EOSINOPHILS 0.6 % (0-7); HEMATOCRIT 26.8 % (36.0-48.0); HEMOGLOBIN 8.6 g/dL (12-16); IMMATURE GRANULOCYTES 0.7 % (0-5); LYMPHOCYTES 4.1 % (15-50); MCH 26.9 pg (26.0-34.0); MCHC 32.1 g/dL (31.0-37.0); MCV 83.8 fL (80.0-100.0); MEAN PLATELET VOLUME 9.1 fL (7.4-10.4); MONOCYTES 8.1 % (2-11); NEUTROPHILS 86.4 % (40-80); PLATELET COUNT 293 10x3/uL (130-400); RDW 16.5 % (11.5-14.5); WBC 19.8 10x3/uL (4.8-10.8)
[2018-04-28 07:10] LABS: ANION GAP 10.2 mmol/L (8-16); CALCIUM 8.2 mg/dL (8.5-10.1); CARBON DIOXIDE 25.8 mmol/L (21.0-32.0)
[2018-04-28 07:16] LABS: CREATININE - SERUM 0.9 mg/dL (0.6-1.3)
[2018-04-28 08:09] VITALS: BP 105/53
[2018-04-28 11:46] VITALS: BP 107/63
[2018-04-28 15:14] VITALS: BP 108/55
[2018-04-28 20:01] VITALS: BP 130/62
[2018-04-29] VITALS (7 sets, daily range): BP systolic 111–127; BP diastolic 51–67
[2018-04-29 05:18] LABS: BASOPHILS 0.1 % (0-2); HEMATOCRIT 26.3 % (36.0-48.0); HEMOGLOBIN 8.3 g/dL (12-16); IMMATURE GRANULOCYTES 0.8 % (0-5); LYMPHOCYTES 7.4 % (15-50); MCH 26.5 pg (26.0-34.0); MCHC 31.6 g/dL (31.0-37.0); MEAN PLATELET VOLUME 9.4 fL (7.4-10.4); MONOCYTES 8.2 % (2-11); NEUTROPHILS 82.5 % (40-80); PLATELET COUNT 290 10x3/uL (130-400); RBC 3.13 10x6/uL (4.00-5.40); RDW 16.7 % (11.5-14.5)
[2018-04-29 05:22] LABS: WBC 14.3 10x3/uL (4.8-10.8)
[2018-04-29 05:30] LABS: CALC OSMOLALITY 271 mosm/kg (275-300); CARBON DIOXIDE 23.7 mmol/L (21.0-32.0); CHLORIDE - SERUM 104 mmol/L (98-107); CREATININE - SERUM 0.7 mg/dL (0.6-1.3); GLUCOSE 116 mg/dL (74-106); POTASSIUM - SERUM 3.7 mmol/L (3.5-5.1); SODIUM 136 mmol/L (136-145); UREA NITROGEN 11 mg/dL (7-18); eGFR NON AFRICAN AMERICAN 85 mL/min (90-120)
[2018-04-30 04:16] VITALS: BP 115/49
[2018-04-30 05:16] LABS: BASOPHILS 0.1 % (0-2); EOSINOPHILS 0.8 % (0-7); HEMATOCRIT 27.1 % (36.0-48.0); HEMOGLOBIN 8.5 g/dL (12-16); IMMATURE GRANULOCYTES 1.1 % (0-5); LYMPHOCYTES 6.4 % (15-50); MCH 26.6 pg (26.0-34.0); MCHC 31.4 g/dL (31.0-37.0); MEAN PLATELET VOLUME 9.4 fL (7.4-10.4); MONOCYTES 6.8 % (2-11); NEUTROPHILS 84.8 % (40-80); PLATELET COUNT 306 10x3/uL (130-400); RBC 3.19 10x6/uL (4.00-5.40); RDW 16.8 % (11.5-14.5)
[2018-04-30 05:18] LABS: WBC 17.9 10x3/uL (4.8-10.8)
[2018-04-30 05:35] LABS: CALC OSMOLALITY 271 mosm/kg (275-300); CALCIUM 8.3 mg/dL (8.5-10.1); CARBON DIOXIDE 25.2 mmol/L (21.0-32.0); CHLORIDE - SERUM 103 mmol/L (98-107); CREATININE - SERUM 0.7 mg/dL (0.6-1.3); GLUCOSE 116 mg/dL (74-106); POTASSIUM - SERUM 3.9 mmol/L (3.5-5.1); SODIUM 136 mmol/L (136-145); UREA NITROGEN 9 mg/dL (7-18); eGFR NON AFRICAN AMERICAN 85 mL/min (90-120)
[2018-04-30 07:49] VITALS: BP 116/46
[2018-04-30 11:03] VITALS: BP 111/58
[2018-04-30 15:46] LABS: % SATURATION 29 % (15-55); IRON 36 ug/dl (35-150); TOTAL IRON BIND CAPACITY 123 ug/dl (260-445); UNSAT IRON BIND CAPACITY 87 ug/dl (150-375)
[2018-04-30 21:56] VITALS: BP 124/54
[2018-05-01 05:42] VITALS: BP 130/64
[2018-05-01 05:49] LABS: BASOPHILS 0.1 % (0-2); EOSINOPHILS 0.5 % (0-7); HEMATOCRIT 27.4 % (36.0-48.0); HEMOGLOBIN 8.7 g/dL (12-16); IMMATURE GRANULOCYTES 0.9 % (0-5); LYMPHOCYTES 4.9 % (15-50); MCH 26.9 pg (26.0-34.0); MCHC 31.8 g/dL (31.0-37.0); MCV 84.8 fL (80.0-100.0); MEAN PLATELET VOLUME 9.4 fL (7.4-10.4); MONOCYTES 5.5 % (2-11); NEUTROPHILS 88.1 % (40-80); PLATELET COUNT 297 10x3/uL (130-400); RBC 3.23 10x6/uL (4.00-5.40); RDW 16.9 % (11.5-14.5)
[2018-05-01 06:00] LABS: CALC OSMOLALITY 264 mosm/kg (275-300); CALCIUM 8.1 mg/dL (8.5-10.1); CARBON DIOXIDE 24.7 mmol/L (21.0-32.0); CHLORIDE - SERUM 101 mmol/L (98-107); CREATININE - SERUM 0.7 mg/dL (0.6-1.3); GLUCOSE 112 mg/dL (74-106); POTASSIUM - SERUM 3.6 mmol/L (3.5-5.1); SODIUM 132 mmol/L (136-145); UREA NITROGEN 10 mg/dL (7-18); eGFR NON AFRICAN AMERICAN 85 mL/min (90-120)
[2018-05-01 07:47] VITALS: BP 125/58
[2018-05-01 09:18] LABS: FOLATE (FOLIC ACID) - SERUM 15.7 ng/mL (>3.0)
[2018-05-01 11:00] VITALS: BP 111/55
[2018-05-01 20:00] VITALS: BP 122/65
[2018-05-02 00:20] VITALS: BP 121/62
[2018-05-02 04:00] VITALS: BP 122/66
[2018-05-02 06:36] LABS: BASOPHILS 0.1 % (0-2); EOSINOPHILS 0.3 % (0-7); HEMOGLOBIN 8.7 g/dL (12-16); IMMATURE GRANULOCYTES 0.9 % (0-5); LYMPHOCYTES 5.5 % (15-50); MCH 26.6 pg (26.0-34.0); MCHC 31.1 g/dL (31.0-37.0); MCV 85.6 fL (80.0-100.0); MONOCYTES 5.9 % (2-11); NEUTROPHILS 87.3 % (40-80); PLATELET COUNT 290 10x3/uL (130-400); RBC 3.27 10x6/uL (4.00-5.40); RDW 16.9 % (11.5-14.5); WBC 17.5 10x3/uL (4.8-10.8)
[2018-05-02 07:41] VITALS: BP 121/65
[2018-05-02 07:46] LABS: ALBUMIN 1.6 g/dL (3.4-5.0); ALKALINE PHOSPHATASE 121 U/L (46-116); ALT (SGPT) 20 U/L (10-68); BILIRUBIN - TOTAL 0.41 mg/dL (0.2-1.3); CALC OSMOLALITY 266 mosm/kg (275-300); CALCIUM 7.8 mg/dL (8.5-10.1); CARBON DIOXIDE 25.9 mmol/L (21.0-32.0); CHLORIDE - SERUM 100 mmol/L (98-107); CREATININE - SERUM 0.7 mg/dL (0.6-1.3); GLUCOSE 105 mg/dL (74-106); MAGNESIUM - SERUM 1.8 mg/dL (1.8-2.4); POTASSIUM - SERUM 3.6 mmol/L (3.5-5.1); PROTEIN - SERUM 6.4 g/dL (6.4-8.2); SODIUM 134 mmol/L (136-145); UREA NITROGEN 9 mg/dL (7-18); eGFR NON AFRICAN AMERICAN 85 mL/min (90-120)
[2018-05-02 11:36] VITALS: BP 124/66
[2018-05-02 15:01] VITALS: BP 132/59
[2018-05-02 20:19] VITALS: BP 114/60
[2018-05-03] VITALS: BP 118/70
[2018-05-03 04:00] VITALS: BP 137/59
[2018-05-03 06:19] LABS: BASOPHILS 0.1 % (0-2); EOSINOPHILS 0.2 % (0-7); HEMATOCRIT 26.2 % (36.0-48.0); HEMOGLOBIN 8.2 g/dL (12-16); IMMATURE GRANULOCYTES 0.7 % (0-5); MCH 26.8 pg (26.0-34.0); MCHC 31.3 g/dL (31.0-37.0); MCV 85.6 fL (80.0-100.0); MEAN PLATELET VOLUME 9.1 fL (7.4-10.4); MONOCYTES 6.5 % (2-11); NEUTROPHILS 86.5 % (40-80); PLATELET COUNT 243 10x3/uL (130-400); RBC 3.06 10x6/uL (4.00-5.40); RDW 17.2 % (11.5-14.5); WBC 17.4 10x3/uL (4.8-10.8)
[2018-05-03 06:32] LABS: CALC OSMOLALITY 267 mosm/kg (275-300); CARBON DIOXIDE 26.8 mmol/L (21.0-32.0); CHLORIDE - SERUM 101 mmol/L (98-107); CREATININE - SERUM 0.6 mg/dL (0.6-1.3); GLUCOSE 110 mg/dL (74-106); POTASSIUM - SERUM 3.5 mmol/L (3.5-5.1); SODIUM 134 mmol/L (136-145); UREA NITROGEN 10 mg/dL (7-18); eGFR NON AFRICAN AMERICAN > 90 mL/min (90-120)
[2018-05-03 08:06] VITALS: BP 143/65
[2018-05-03 11:40] VITALS: BP 120/56
[2018-05-03 15:21] VITALS: BP 116/56
[2018-05-03 18:19] LABS: BASOPHILS 0.1 % (0-2); EOSINOPHILS 0.5 % (0-7); HEMATOCRIT 26.6 % (36.0-48.0); HEMOGLOBIN 8.3 g/dL (12-16); IMMATURE GRANULOCYTES 0.8 % (0-5); LYMPHOCYTES 6.7 % (15-50); MCHC 31.2 g/dL (31.0-37.0); MCV 86.6 fL (80.0-100.0); MEAN PLATELET VOLUME 8.7 fL (7.4-10.4); MONOCYTES 6.6 % (2-11); NEUTROPHILS 85.3 % (40-80); PLATELET COUNT 196 10x3/uL (130-400); RBC 3.07 10x6/uL (4.00-5.40); RDW 17.1 % (11.5-14.5); WBC 14.1 10x3/uL (4.8-10.8)
[2018-05-03 18:36] LABS: ALBUMIN 1.7 g/dL (3.4-5.0); ALKALINE PHOSPHATASE 133 U/L (46-116); ALT (SGPT) 23 U/L (10-68); BILIRUBIN - TOTAL 0.25 mg/dL (0.2-1.3); CALC OSMOLALITY 271 mosm/kg (275-300); CALCIUM 7.8 mg/dL (8.5-10.1); CARBON DIOXIDE 31.3 mmol/L (21.0-32.0); CHLORIDE - SERUM 102 mmol/L (98-107); CREATININE - SERUM 0.7 mg/dL (0.6-1.3); GLUCOSE 138 mg/dL (74-106); POTASSIUM - SERUM 3.3 mmol/L (3.5-5.1); PROTEIN - SERUM 5.8 g/dL (6.4-8.2); SODIUM 135 mmol/L (136-145); eGFR NON AFRICAN AMERICAN 85 mL/min (90-120)
[2018-05-03 18:52] LABS: UREA NITROGEN 13 mg/dL (7-18)
[2018-05-03 20:00] VITALS: BP 151/65
[2018-05-04] VITALS: BP 120/54
[2018-05-04 04:00] VITALS: BP 125/64
[2018-05-04 04:45] LABS: BASOPHILS 0.1 % (0-2); EOSINOPHILS 0.2 % (0-7); HEMATOCRIT 25.3 % (36.0-48.0); HEMOGLOBIN 7.9 g/dL (12-16); IMMATURE GRANULOCYTES 0.5 % (0-5); LYMPHOCYTES 6.4 % (15-50); MCH 26.8 pg (26.0-34.0); MCHC 31.2 g/dL (31.0-37.0); MCV 85.8 fL (80.0-100.0); MEAN PLATELET VOLUME 8.9 fL (7.4-10.4); MONOCYTES 7.4 % (2-11); NEUTROPHILS 85.4 % (40-80); PLATELET COUNT 197 10x3/uL (130-400); RBC 2.95 10x6/uL (4.00-5.40); RDW 16.9 % (11.5-14.5)
[2018-05-04 04:46] LABS: WBC 18.3 10x3/uL (4.8-10.8)
[2018-05-04 05:38] LABS: ALBUMIN 1.6 g/dL (3.4-5.0); ALKALINE PHOSPHATASE 118 U/L (46-116); ALT (SGPT) 20 U/L (10-68); BILIRUBIN - TOTAL 0.38 mg/dL (0.2-1.3); CALC OSMOLALITY 273 mosm/kg (275-300); CALCIUM 7.9 mg/dL (8.5-10.1); CARBON DIOXIDE 25.6 mmol/L (21.0-32.0); CHLORIDE - SERUM 103 mmol/L (98-107); CREATININE - SERUM 0.6 mg/dL (0.6-1.3); GLUCOSE 114 mg/dL (74-106); POTASSIUM - SERUM 3.3 mmol/L (3.5-5.1); PROTEIN - SERUM 6.1 g/dL (6.4-8.2); SODIUM 137 mmol/L (136-145); UREA NITROGEN 11 mg/dL (7-18); eGFR NON AFRICAN AMERICAN > 90 mL/min (90-120)
[2018-05-04 08:11] VITALS: BP 118/55
[2018-05-04 11:31] VITALS: BP 125/59
[2018-05-04 15:29] VITALS: BP 119/50
[2018-05-04 20:00] VITALS: BP 141/71
[2018-05-05] VITALS: BP 138/74
[2018-05-05 04:00] VITALS: BP 139/64
[2018-05-05 05:38] LABS: BASOPHILS 0.1 % (0-2); EOSINOPHILS 0.5 % (0-7); HEMATOCRIT 27.2 % (36.0-48.0); HEMOGLOBIN 8.6 g/dL (12-16); IMMATURE GRANULOCYTES 1.1 % (0-5); LYMPHOCYTES 8.3 % (15-50); MCH 27.1 pg (26.0-34.0); MCHC 31.6 g/dL (31.0-37.0); MCV 85.8 fL (80.0-100.0); MEAN PLATELET VOLUME 9.1 fL (7.4-10.4); MONOCYTES 9.6 % (2-11); NEUTROPHILS 80.4 % (40-80); PLATELET COUNT 176 10x3/uL (130-400); RBC 3.17 10x6/uL (4.00-5.40); WBC 15.6 10x3/uL (4.8-10.8)
[2018-05-05 05:54] LABS: ALBUMIN 1.6 g/dL (3.4-5.0); ALKALINE PHOSPHATASE 132 U/L (46-116); ALT (SGPT) 23 U/L (10-68); CALC OSMOLALITY 272 mosm/kg (275-300); CALCIUM 8.2 mg/dL (8.5-10.1); CHLORIDE - SERUM 104 mmol/L (98-107); CREATININE - SERUM 0.6 mg/dL (0.6-1.3); GLUCOSE 93 mg/dL (74-106); PHOSPHOROUS 2.8 mg/dL (2.5-4.9); POTASSIUM - SERUM 3.6 mmol/L (3.5-5.1); PROTEIN - SERUM 6.3 g/dL (6.4-8.2); SODIUM 137 mmol/L (136-145); UREA NITROGEN 9 mg/dL (7-18); eGFR NON AFRICAN AMERICAN > 90 mL/min (90-120)
[2018-05-05 07:23] LABS: ALPHA FETOPROTEIN -(TUMOR MRK) 1.7 ng/mL (0.0-8.3); CEA 2.9 ng/mL (0.0-4.7)
[2018-05-05 09:15] VITALS: BP 136/45
[2018-05-05 17:00] VITALS: BP 110/51
[2018-05-05 20:38] VITALS: BP 130/62
[2018-05-06 00:30] VITALS: BP 138/56
[2018-05-06 04:30] VITALS: BP 128/55
[2018-05-06 06:22] LABS: BASOPHILS 0.1 % (0-2); EOSINOPHILS 0.2 % (0-7); HEMOGLOBIN 7.7 g/dL (12-16); IMMATURE GRANULOCYTES 0.7 % (0-5); MCH 27.2 pg (26.0-34.0); MCHC 32.1 g/dL (31.0-37.0); MCV 84.8 fL (80.0-100.0); MEAN PLATELET VOLUME 9.3 fL (7.4-10.4); MONOCYTES 10.4 % (2-11); NEUTROPHILS 80.6 % (40-80); PLATELET COUNT 158 10x3/uL (130-400); RBC 2.83 10x6/uL (4.00-5.40); RDW 17.2 % (11.5-14.5)
[2018-05-06 07:01] LABS: ALBUMIN 1.6 g/dL (3.4-5.0); ALKALINE PHOSPHATASE 124 U/L (46-116); ALT (SGPT) 27 U/L (10-68); BILIRUBIN - TOTAL 0.34 mg/dL (0.2-1.3); CALC OSMOLALITY 273 mosm/kg (275-300); CALCIUM 7.8 mg/dL (8.5-10.1); CARBON DIOXIDE 24.4 mmol/L (21.0-32.0); CHLORIDE - SERUM 105 mmol/L (98-107); CREATININE - SERUM 0.5 mg/dL (0.6-1.3); GLUCOSE 99 mg/dL (74-106); MAGNESIUM - SERUM 1.7 mg/dL (1.8-2.4); PHOSPHOROUS 2.6 mg/dL (2.5-4.9); PROTEIN - SERUM 5.8 g/dL (6.4-8.2); SODIUM 138 mmol/L (136-145); UREA NITROGEN 6 mg/dL (7-18); eGFR NON AFRICAN AMERICAN > 90 mL/min (90-120)
[2018-05-06 08:51] VITALS: BP 121/60
[2018-05-06 12:20] VITALS: BP 106/60
[2018-05-06 16:08] LABS: HCVGENO - HEP C QUANT HCV Not Detected IU/mL (())
[2018-05-06 16:55] VITALS: BP 92/60
[2018-05-06 20:06] LABS: B PARAPERTUSSIS DNA Negative (Negative); B PERTUSSIS DNA Negative (Negative)
[2018-05-06 20:20] VITALS: BP 105/70
[2018-05-07 00:30] VITALS: BP 139/59
[2018-05-07 04:30] VITALS: BP 137/65
[2018-05-07 04:32] LABS: BASOPHILS 0.1 % (0-2); EOSINOPHILS 0.6 % (0-7); HEMATOCRIT 24.6 % (36.0-48.0); HEMOGLOBIN 7.8 g/dL (12-16); IMMATURE GRANULOCYTES 1.2 % (0-5); LYMPHOCYTES 7.5 % (15-50); MCH 26.8 pg (26.0-34.0); MCHC 31.7 g/dL (31.0-37.0); MCV 84.5 fL (80.0-100.0); MEAN PLATELET VOLUME 9.3 fL (7.4-10.4); MONOCYTES 10.1 % (2-11); NEUTROPHILS 80.5 % (40-80); PLATELET COUNT 176 10x3/uL (130-400); RBC 2.91 10x6/uL (4.00-5.40); RDW 17.8 % (11.5-14.5); WBC 14.4 10x3/uL (4.8-10.8)
[2018-05-07 04:54] LABS: ALBUMIN 1.7 g/dL (3.4-5.0); ALKALINE PHOSPHATASE 128 U/L (46-116); ALT (SGPT) 25 U/L (10-68); BILIRUBIN - TOTAL 0.32 mg/dL (0.2-1.3); CALC OSMOLALITY 273 mosm/kg (275-300); CALCIUM 7.6 mg/dL (8.5-10.1); CARBON DIOXIDE 26.8 mmol/L (21.0-32.0); CHLORIDE - SERUM 105 mmol/L (98-107); CREATININE - SERUM 0.5 mg/dL (0.6-1.3); GLUCOSE 102 mg/dL (74-106); MAGNESIUM - SERUM 1.9 mg/dL (1.8-2.4); PHOSPHOROUS 2.8 mg/dL (2.5-4.9); POTASSIUM - SERUM 3.1 mmol/L (3.5-5.1); PROTEIN - SERUM 6.1 g/dL (6.4-8.2); SODIUM 138 mmol/L (136-145); UREA NITROGEN 7 mg/dL (7-18); eGFR NON AFRICAN AMERICAN > 90 mL/min (90-120)
[2018-05-07 07:29] LABS: APTT 43.4 SECONDS (22.8-39.4); INR 1.21 (0.85-1.17); PROTIME 14.9 SECONDS (11.6-15.0)
[2018-05-07 07:47] VITALS: BP 113/64
[2018-05-07 08:00] VITALS: BP 112/67
[2018-05-07 11:18] VITALS: BP 152/63
[2018-05-07 14:57] VITALS: BP 125/49
[2018-05-08 04:33] VITALS: BP 136/65
[2018-05-08 05:30] LABS: HEMATOCRIT 33.3 % (36.0-48.0); HEMOGLOBIN 10.9 g/dL (12-16); MCH 27.1 pg (26.0-34.0); MCHC 32.7 g/dL (31.0-37.0); MCV 82.8 fL (80.0-100.0); MEAN PLATELET VOLUME 9.2 fL (7.4-10.4); PLATELET COUNT 178 10x3/uL (130-400); RBC 4.02 10x6/uL (4.00-5.40); WBC 22.2 10x3/uL (4.8-10.8)
[2018-05-08 05:55] LABS: ALBUMIN 1.8 g/dL (3.4-5.0); ALKALINE PHOSPHATASE 122 U/L (46-116); ALT (SGPT) 19 U/L (10-68); BILIRUBIN - TOTAL 1.47 mg/dL (0.2-1.3); CALC OSMOLALITY 271 mosm/kg (275-300); CALCIUM 8.2 mg/dL (8.5-10.1); CARBON DIOXIDE 27.6 mmol/L (21.0-32.0); CHLORIDE - SERUM 104 mmol/L (98-107); CREATININE - SERUM 0.7 mg/dL (0.6-1.3); GLUCOSE 139 mg/dL (74-106); MAGNESIUM - SERUM 1.8 mg/dL (1.8-2.4); PHOSPHOROUS 3.3 mg/dL (2.5-4.9); POTASSIUM - SERUM 3.4 mmol/L (3.5-5.1); PROTEIN - SERUM 6.4 g/dL (6.4-8.2); SODIUM 136 mmol/L (136-145); UREA NITROGEN 8 mg/dL (7-18); eGFR NON AFRICAN AMERICAN 85 mL/min (90-120)
[2018-05-08 06:00] LABS: LYMPHOCYTES 6 % (15-50); MONOCYTES 4 % (2-11); NEUTROPHILS 89 % (40-80)
[2018-05-08 06:01] LABS: PLATELET ESTIMATE DECREASED
[2018-05-08 07:43] VITALS: BP 138/67
[2018-05-08 10:20] LABS: CEA 3.4 ng/mL (0.0-4.7)
[2018-05-08 11:24] VITALS: BP 118/67
[2018-05-08 15:27] VITALS: BP 133/82
[2018-05-08 18:39] LABS: APPEARANCE CLEAR (CLEAR); BILIRUBIN NEGATIVE (NEGATIVE); COLOR YELLOW (YELLOW); GLUCOSE NEGATIVE (NEGATIVE); KETONE NEGATIVE (NEGATIVE); NITRITE NEGATIVE (NEGATIVE); PROTEIN NEGATIVE (NEGATIVE); SPECIFIC GRAVITY 1.015 (1.005-1.020); UROBILINOGEN NORMAL (NORMAL)
[2018-05-08 20:39] VITALS: BP 93/53
[2018-05-09 04:00] VITALS: BP 130/66
[2018-05-09 05:21] LABS: BASOPHILS 0.1 % (0-2); EOSINOPHILS 0.8 % (0-7); HEMATOCRIT 33.8 % (36.0-48.0); HEMOGLOBIN 10.9 g/dL (12-16); IMMATURE GRANULOCYTES 1.3 % (0-5); MCH 27.3 pg (26.0-34.0); MCHC 32.2 g/dL (31.0-37.0); MCV 84.5 fL (80.0-100.0); MEAN PLATELET VOLUME 9.8 fL (7.4-10.4); MONOCYTES 10.1 % (2-11); NEUTROPHILS 80.7 % (40-80); PLATELET COUNT 207 10x3/uL (130-400); RDW 18.3 % (11.5-14.5)
[2018-05-09 05:35] LABS: WBC 14.4 10x3/uL (4.8-10.8)
[2018-05-09 05:49] LABS: ALBUMIN 1.8 g/dL (3.4-5.0); ALKALINE PHOSPHATASE 122 U/L (46-116); ALT (SGPT) 21 U/L (10-68); BILIRUBIN - TOTAL 0.52 mg/dL (0.2-1.3); CALCIUM 8.4 mg/dL (8.5-10.1); CARBON DIOXIDE 29.3 mmol/L (21.0-32.0); CHLORIDE - SERUM 104 mmol/L (98-107); CREATININE - SERUM 0.7 mg/dL (0.6-1.3); GLUCOSE 97 mg/dL (74-106); MAGNESIUM - SERUM 1.8 mg/dL (1.8-2.4); PHOSPHOROUS 3.4 mg/dL (2.5-4.9); PROTEIN - SERUM 6.6 g/dL (6.4-8.2); SODIUM 138 mmol/L (136-145); eGFR NON AFRICAN AMERICAN 85 mL/min (90-120)
[2018-05-09 05:54] LABS: CALC OSMOLALITY 274 mosm/kg (275-300); UREA NITROGEN 11 mg/dL (7-18)
[2018-05-09 07:36] VITALS: BP 123/78
[2018-05-09 11:30] VITALS: BP 132/60
[2018-05-09] MEDS ORDERED: LEVAQUIN750 MG PO (13:54)
[2018-05-09] MEDS ORDERED: PRAVASTATIN SOD10 MG PO (13:55)
[2018-05-09] MEDS ORDERED: ACETAMINOPHEN500 M1 PO (13:55)
[2018-05-09] MEDS ORDERED: FLUTICASONE PRO16 GM NASAL (13:56)
[2018-05-09] MEDS ORDERED: CARAFATE1 G/10 ML PO (13:56)
== END 2018-05-09 17:59 | disposition home or self-care (01) | DRG 189 ==
LOC: D.M2 12:35
PROVIDERS: Family Medicine; Family Medicine Adult Medicine; General Practice; Internal Medicine; Internal Medicine Gastroenterology; Internal Medicine Hematology & Oncology; Internal Medicine Nephrology; Internal Medicine Pulmonary Disease; Student in an Organized Health Care Education/Training Program
PROC: 0FB13ZX Excision of Right Lobe Liver, Percutaneous Approach, Diagnostic (ICD-10-PCS; principal; 2018-05-07 08:30)
DX: J96.21 Acute and chronic respiratory failure with hypoxia (principal); J15.6 Pneumonia due to other Gram-negative bacteria; J15.20 Pneumonia due to staphylococcus, unspecified; J44.0 Chronic obstructive pulmonary disease with (acute) lower respiratory infection; N17.9 Acute kidney failure, unspecified; J44.1 Chronic obstructive pulmonary disease with (acute) exacerbation; J98.11 Atelectasis; N39.0 Urinary tract infection, site not specified; C22.0 Liver cell carcinoma; J20.9 Acute bronchitis, unspecified; I10 Essential (primary) hypertension; D64.9 Anemia, unspecified; B19.20 Unspecified viral hepatitis C without hepatic coma; Z86.73 Personal history of transient ischemic attack (TIA), and cerebral infarction without residual deficits